=== PATIENT | female | born 1970 | race Caucasian/White ===

== ENCOUNTER 2020-05-07 12:33 | Emergency (ER) | payer BC, SELFPAY ==
[2020-05-07] VITALS (9 sets, daily range): BP systolic 112–134; BP diastolic 66–81; PULSE 90–104; RESP 14–23; TEMP 37.5–38.3; O2SAT 97–99
--- NOTE | 2020-05-07 12:48 | DI.RAD.S_ITS ---
PROCEDURE: XR CHEST 1V INDICATIONS: chest pain TECHNIQUE: One view of the chest was acquired. COMPARISON: None. FINDINGS: Surgical changes and devices: None. Lungs and pleura: Lungs are clear. No pleural effusions or pneumothorax. Mediastinum: Mediastinal contours appear normal. Heart size is normal. Bones and chest wall: No suspicious bony lesions. Overlying soft tissues appear unremarkable. IMPRESSION: No acute cardiopulmonary process is evident. Dictated by: Carlos Ambrose M.D. on 05/07/2020 at 12:23 Approved by: Carlos Ambrose M.D. on 05/07/2020 at 12:24
--- NOTE | 2020-05-07 12:56 | ED_ITS ---
HPI - General Adult General Chief complaint: Fever Stated complaint: Stroke Time Seen by Provider: 05/07/20 12:40 Source: patient and EMS Mode of arrival: EMS History of Present Illness HPI narrative: [place] is for multiple reasons. First. Patient states last night started sore throat and fever. History of strep throat many times in the past. Patient also has history of a panic attack, last 115 years ago seen in [place]. This morning she received a phone call that her father has had a stroke. Immediately, again immediately patient started hyperventilating and started to have bilateral ascending numbness and tingling from the feet upwards to her chest. Also had arm tightness both sides and cramping. No syncope. No headache. Patient was hyperventilating, she called her family physician and was instructed to breathe into a bag and that resolved her numbness and tingling. [facility] was called to bring patient here. Fever has resolved. She did take ibuprofen prior to arrival. Denies , does not want test. Accu-Chek 140 Related Data Previous Rx's Medication Instructions Recorded amoxicillin 500 mg PO BID #20 tab 05/07/20 Allergies Allergy/AdvReac Type Severity Reaction Status Date / Time No Known Drug Allergies Allergy Verified 05/07/20 12:59 Review of Systems Review of Systems Narrative: GENERAL: Complains of chills, fever, sweats. HEENT: Denies sinus pain, ear pain, sore throat, difficulty swallowing, dizziness. RESPIRATORY: Denies dyspnea, cough, wheezing, hemoptysis, sputum. CARDIOVASCULAR: Denies chest pain, palpitations, orthopnea, edema, GASTROINTESTINAL: Denies nausea, vomiting, abdominal pain, diarrhea, constipation, melena. : Denies dysuria, frequency, incontinence, hematuria, urinary retention. MUSCULOSKELETAL: denies weakness, joint pain, or bony pain SKIN: Denies rash, skin lesions, or other NEUROLOGIC: Complains of bilateral numbness and tingling. No altered mental status. No headache. PSYCHIATRIC: Anxiety ROS Unobtainable: All systems reviewed & are unremarkable except as noted in HPI and below Patient History Social History Smoking Status: Never smoker Exam Narrative Exam Narrative: GENERAL: patient appears stated age. Well-nourished, well- developed patient, in no distress, not toxic HEAD: Atraumatic. Normocephalic. EYES: Pupils equal round and reactive. Extraocular motions intact. No scleral icterus. No injection or drainage. ENT: Nose without bleeding, purulent drainage. There is bilateral symmetric pharyngeal erythema edema without exudates. No tongue elevation. No drooling. NECK: Trachea midline. Bilateral submandibular tenderness CARDIOVASCULAR: Regular rate and rhythm without murmurs, gallops, or rubs. RESPIRATORY: Clear to auscultation. Breath sounds equal bilaterally. No wheezes, rales, or rhonchi. GASTROINTESTINAL: Abdomen soft, non-tender, nondistended. EXTREMITIES: No edema or joint tenderness. BACK: Nontender without deformity or crepitance. No flank tenderness. NEURO: AOx3. Clear speech and facial droop like to detect the lateral face hands and legs. 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 SKIN: No rash or erythema of visible areas Initial Vital Signs Initial Vital Signs: Vital Signs Temperature 99.9 F H 05/07/20 12:35 Pulse Rate 97 H 05/07/20 12:35 Respiratory Rate 14 05/07/20 12:35 Blood Pressure 134/78 05/07/20 12:35 Pulse Oximetry 99 05/07/20 12:35 Course Orders Ordered: Discontinued Medications Acetaminophen (Tylenol) 975 mg PO NOW ONE Stop: 05/07/20 13:48 Last Admin: 05/07/20 13:58 Dose: 975 mg Documented by: VONNIE Amoxicillin (Trimox) 500 mg PO NOW ONE Stop: 05/07/20 14:25 Last Admin: 05/07/20 15:01 Dose: 500 mg Documented by: VONNIE Sodium Chloride (Normal Saline 0.9%) 1,000 mls @ 150 mls/hr IV CONT EVITA Last Infusion: 05/07/20 15:44 Dose: 0 mls/hr Documented by: Admin: 05/07/20 13:11 Dose: 150 mls/hr Documented by: VONNIE Ibuprofen (Advil) 400 mg PO NOW ONE Stop: 05/07/20 15:55 Last Admin: 05/07/20 16:09 Dose: 400 mg Documented by: VONNIE Lorazepam (Ativan) 0.5 mg IV NOW ONE Stop: 05/07/20 12:56 Last Admin: 05/07/20 13:11 Dose: 0.5 mg Documented by: VONNIE Potassium Chloride (Potassium Chloride) 20 meq PO NOW ONE Stop: 05/07/20 14:25 Last Admin: 05/07/20 15:01 Dose: 20 meq Documented by: VONNIE Propofol (Diprivan) 200 mg IV NOW ONE Stop: 05/07/20 15:56 Last Admin: 05/07/20 15:56 Dose: Not Given Documented by: VONNIE Vital Signs Vital signs: Vital Signs - 8 hr 05/07/20 12:35 05/07/20 13:10 05/07/20 13:47 Temperature 99.9 F H 100.9 F H Pulse Rate 97 H 102 H 104 H Respiratory Rate 14 20 20 Blood Pressure 134/78 Blood Pressure [Left Arm] 131/81 134/80 Pulse Oximetry 99 99 99 05/07/20 13:58 Temperature 100.9 F H Pulse Rate Respiratory Rate Blood Pressure Blood Pressure [Left Arm] Pulse Oximetry Medical Decision Making Differential Diagnosis Differential Diagnosis: Pharyngitis/panic attack. Lab Data Result diagrams: 05/07/20 12:40 05/07/20 12:40 Labs: Lab Results 05/07/20 05/07/20 05/07/20 Range/Units 11:45 11:45 12:40 WBC 13.1 H (4.5-11.0) X10^3/uL RBC 4.17 (4.0-5.2) X10^6/uL Hgb 12.8 (12.0-16.0) g/dL Hct 37.5 (36-46) % MCV 90.0 (80-100) fL MCH 30.7 (26-34) PG MCHC 34.1 (30-36) % RDW 13.0 (11.6-14.8) % Plt Count 194 (150-400) X10^3/uL Neut % (Auto) 91.1 H (50-75) % Lymph % (Auto) 3.8 L (25-40) % [place] % (Auto) 4.6 (3-14) % Eos % (Auto) 0.0 L (2-4) % Baso % (Auto) 0.5 (0-2) % Neut # (Auto) 18785 H (8872-9240) /uL Lymph # (Auto) 500 L (8019-4051) /uL [place] # (Auto) 600 (0-900) /uL Eos # (Auto) 0 (0-450) /uL Baso # (Auto) 100 (0-100) /uL Sodium (137-145) mmol/L Potassium (3.4-5.1) mmol/L Chloride (98-107) mmol/L Carbon Dioxide (22-32) mmol/L BUN (7-17) mg/dL Creatinine (0.52-1.04) mg/dL Estimated GFR (>60) mL/min BUN/Creatinine Ratio (6-22) Glucose (70-100) mg/dL Calcium (8.4-10.2) mg/dL Total Bilirubin (0.2-1.3) mg/dL AST (14-36) IU/L ALT (<35) IU/L Alkaline Phosphatase (38-126) U/L Total Creatine Kinase (30-135) U/L CK-MB (CK-2) CK-MB (CK-2) Rel Index Troponin I (0.01-0.034) ng/mL Total Protein (6.3-8.2) g/dL Albumin (3.5-5.0) g/dL Globulin (1.7-4.1) g/dL Albumin/Globulin Ratio (1.0-2.8) COVID-19 PCR Negative (Negative) Influenza A (RT-PCR) Flu a negative (NEGATIVE) Influenza B (RT-PCR) Flu b negative (NEGATIVE) 05/07/20 Range/Units 12:40 WBC (4.5-11.0) X10^3/uL RBC (4.0-5.2) X10^6/uL Hgb (12.0-16.0) g/dL Hct (36-46) % MCV (80-100) fL MCH (26-34) PG MCHC (30-36) % RDW (11.6-14.8) % Plt Count (150-400) X10^3/uL Neut % (Auto) (50-75) % Lymph % (Auto) (25-40) % [place] % (Auto) (3-14) % Eos % (Auto) (2-4) % Baso % (Auto) (0-2) % Neut # (Auto) (5760-1231) /uL Lymph # (Auto) (3835-3449) /uL [place] # (Auto) (0-900) /uL Eos # (Auto) (0-450) /uL Baso # (Auto) (0-100) /uL Sodium 137 (137-145) mmol/L Potassium 3.2 L (3.4-5.1) mmol/L Chloride 104 (98-107) mmol/L Carbon Dioxide 25 (22-32) mmol/L BUN 18 H (7-17) mg/dL Creatinine 0.84 (0.52-1.04) mg/dL Estimated GFR > 60.0 (>60) mL/min BUN/Creatinine Ratio 21.4 (6-22) Glucose 120 H (70-100) mg/dL Calcium 9.4 (8.4-10.2) mg/dL Total Bilirubin 0.8 (0.2-1.3) mg/dL AST 21 (14-36) IU/L ALT 11 (<35) IU/L Alkaline Phosphatase 90 (38-126) U/L Total Creatine Kinase 55 (30-135) U/L CK-MB (CK-2) TNP CK-MB (CK-2) Rel Index TNP Troponin I < 0.012 (0.01-0.034) ng/mL Total Protein 7.4 (6.3-8.2) g/dL Albumin 4.2 (3.5-5.0) g/dL Globulin 3.2 (1.7-4.1) g/dL Albumin/Globulin Ratio 1.3 (1.0-2.8) COVID-19 PCR (Negative) Influenza A (RT-PCR) (NEGATIVE) Influenza B (RT-PCR) (NEGATIVE) Point of Care Testing Rapid Strep A Negative Urine Dip Bedside Urine Glucose Negative Bedside Urine Bilirubin - Negative Bedside Urine Ketone ++ 40 Urine Specific [place] 1.015 Bedside Urine Occult Blood +/- Bedside Urine pH 7.0 Bedside Urine Protein - Negative Bedside Urine Urobilinogen - Negative Bedside Urine Nitrite - Negative Bedside Urine Leukocytes - Negative Esterase Point of care testing: Point of Care Testing Rapid Strep A Negative Urine Dip Bedside Urine Glucose Negative Bedside Urine Bilirubin - Negative Bedside Urine Ketone ++ 40 Urine Specific [place] 1.015 Bedside Urine Occult Blood +/- Bedside Urine pH 7.0 Bedside Urine Protein - Negative Bedside Urine Urobilinogen - Negative Bedside Urine Nitrite - Negative Bedside Urine Leukocytes - Negative Esterase Imaging Data Chest x-ray: Radiologist's Impression: [address] [address] XRay Report Signed Patient: Shannan Nuno KMR#: [id number] : 1970Acct:[id number] Age/Sex: 50 / FDate of Service: 05/07/20 Loc: ED Accession Number: [id number] Procedure: XR chest 1V Ordering Provider: Calvin Reyes MD PROCEDURE: XR CHEST 1V INDICATIONS: chest pain TECHNIQUE: One view of the chest was acquired. COMPARISON: None. FINDINGS: Surgical changes and devices: None. Lungs and pleura: Lungs are clear. No pleural effusions or pneumothorax. Mediastinum: Mediastinal contours appear normal. Heart size is normal. Bones and chest wall: No suspicious bony lesions. Overlying soft tissues appear unremarkable. IMPRESSION: No acute cardiopulmonary process is evident. Dictated by: Carlos Ambrose M.D. on 05/07/2020 at 12:23 Approved by: Carlos Ambrose M.D. on 05/07/2020 at 12:24 ECG Data Attestation: I personally reviewed and interpreted this ECG as follows: Interpretation: EKG at 12:57 p.m.. Normal sinus rhythm. Ventricular rate 86. No ST elevation or depression. Normal EKG MDM Narrative Medical decision making narrative: Likely not a stroke. No CT scan of the head at this time. Had bilateral symmetric ascending numbness and tingling. No slurred speech or facial droop. Event occurred while hyperventilating. Addendum May 08, 2020 at 7:51 a.m.. Patient states the traumatic news of hearing her father having a stroke immediately triggered a panic attack and h yperventilating leading to the neurological complaints Additional Information: POC strep screen negative, will treat clinically for pharyngitis/strep throat. Culture pending Discharge Plan Departure Patient Disposition: Home Clinical Impression: Anxiety attack Pharyngitis Qualifiers: Pharyngitis/tonsillitis etiology: unspecified etiology Qualified Code(s): J02.9 - Acute pharyngitis, unspecified Discharge Date/Time: 05/07/20 17:19 Instructions: DI for Pharyngitis/Tonsillopharyngitis -- Adult, DI for Anxiety -- Adult Activity Restrictions/Additional Instructions: See family doctor next week for recheck. Return if worse. Drink plenty of fluids. Continue Tylenol or ibuprofen for pain/fever Prescriptions: New amoxicillin 500 mg tablet 500 mg PO BID Qty: 20 RF: 0
[2020-05-07 12:59] LABS: Add Manual Diff / Slide Review NO; Basophils Absolute Auto 100 /uL (0-100); Basophils Percent Auto 0.5 % (0-2); Eosinophils Absolute Auto 0 /uL (0-450); Hematocrit 37.5 % (36-46); Hemoglobin 12.8 g/dL (12.0-16.0); Lymphocytes Absolute Auto 500 /uL (1100-4500); Lymphocytes Percent Auto 3.8 % (25-40); Mean Corpuscular HGB Conc 34.1 % (30-36); Mean Corpuscular Hemoglobin 30.7 PG (26-34); Monocytes Absolute Auto 600 /uL (0-900); Monocytes Percent Auto 4.6 % (3-14); Neutrophils Absolute Auto 11900 /uL (1500-7000); Neutrophils Percent Auto 91.1 % (50-75); Platelet Count 194 X10^3/uL (150-400); Red Blood Cell Count 4.17 X10^6/uL (4.0-5.2); White Blood Cell Count 13.1 X10^3/uL (4.5-11.0)
[2020-05-07] MEDS: LORazepam 2 MG/ML INJ 0.5 MG IV (13:11)
[2020-05-07] MEDS: SODIUM CHLORIDE 0.9% 1,000 ML 150 ML IV (13:11)
[2020-05-07 13:13] LABS: Alanine Aminotransferase 11 IU/L (<35); Albumin 4.2 g/dL (3.5-5.0); Albumin Globulin Ratio 1.3 (1.0-2.8); Alkaline Phosphatase 90 U/L (38-126); Aspartate Aminotransferase 21 IU/L (14-36); BUN Creatinine Ratio 21.4 (6-22); Bilirubin Total 0.8 mg/dL (0.2-1.3); Blood Urea Nitrogen 18 mg/dL (7-17); Calcium 9.4 mg/dL (8.4-10.2); Carbon Dioxide 25 mmol/L (22-32); Chloride 104 mmol/L (98-107); Creatine Kinase 55 U/L (30-135); Estimated Glomerular Filt Rate > 60.0 mL/min (>60); Globulin 3.2 g/dL (1.7-4.1); Glucose 120 mg/dL (70-100); HEMOLYSIS < 15 (0-50); Potassium 3.2 mmol/L (3.4-5.1); Sodium 137 mmol/L (137-145); Total Protein 7.4 g/dL (6.3-8.2)
[2020-05-07 13:24] LABS: Troponin I < 0.012 ng/mL (0.01-0.034)
[2020-05-07 13:37] LABS: Influenza A - CEPHEID Flu A NEGATIVE (NEGATIVE); Influenza B - CEPHEID Flu B NEGATIVE (NEGATIVE)
[2020-05-07] MEDS: ACETAMINOPHEN 325 MG TABLET 975 MG PO (13:58)
[2020-05-07 14:00] LABS: COVID19 -Nasal RAPID Negative (Negative)
[2020-05-07] MEDS: POTASSIUM CHLORIDE 20 MEQ/15 ML UDC PO (15:01)
[2020-05-07] MEDS: AMOXICILLIN 250 MG CAPSULE 500 MG PO (15:01)
[2020-05-07] MEDS: IBUPROFEN 400 MG TABLET PO (16:09)
--- NOTE | 2020-05-10 16:24 | PC.NURSE ---
Pt called to discuss micro result. Dr. Rivera reviewed and instructions were to continue abx therapy as prescribed w/o changes. Pt states she feels improved. No fever x 24 hours. Pain improved. Taking po fluids. Denies needs at this time. Encouraged to f'/u as needed and indicated and return for any needs or concerns.
== END 2020-05-07 17:19 | disposition home or self-care (01) ==
PROVIDERS: Emergency Provider Emergency Medicine
DX: F41.0 Panic disorder [episodic paroxysmal anxiety] (principal); J02.9 Acute pharyngitis, unspecified; R07.9 Chest pain, unspecified
CPT/HCPCS: 36415; 71045; 80053; 81003; 82550; 84484; 85025; 87070; 87077; 87147; 87502; 87635; 87880; 93005; 93010; 96361; 96374; 99285; J2060